=== PATIENT | female | born 1950 | race Caucasian/White ===

== ENCOUNTER 2018-04-11 15:34 | Emergency (ER) | payer MEDICARE, OTHER ==
--- NOTE | 2018-04-11 16:47 | ED Physician Documentation ---
General Adult - HISTORIAN Historian: patient - HPI Stated Complaint: Syncopal Event Chief Complaint: General Adult Further Comments: yes (67 year old female patient present with complaints of dizziness; reports near syncope yesterday, fell due to dizziness. Patient was seen at PCP office Saturday and started on levaquin, compazine and meclinizine for dizziness. Patient reports fatigue and malaise.) - ROS CONST: no problems EYES/ENT: none CVS/RESP: cough GI/: none MS/SKIN/LYMPH: none NEURO/PSYCH: dizziness - PAST HX Past History: other (arthritis, GERD) Surgeries/Procedures: cholecystectomy, other (appendectomy) Allergies/Adverse Reactions: Allergies Allergy/AdvReac Type Severity Reaction Status Date / Time Penicillins Allergy Verified 04/11/18 16:01 Sulfa (Sulfonamide Allergy Verified 04/11/18 16:01 Antibiotics) Home Medications: Ambulatory Orders Medication Instructions Recorded Alprazolam 0.5 mg PO 05/25/15 Meloxicam [Mobic] 05/25/15 Omeprazole 40 mg PO QDAY 05/25/15 Loratadine [Allergy Relief] 04/11/18 - SOCIAL HX Smoking History: non-smoker - FAMILY HX Family History: No - VITAL SIGNS Vital Signs: Vital Signs Temp Pulse Resp BP Pulse Ox 122/73 94 05/25/15 11:07 04/11/18 15:35 - REVIEWED ASSESSMENTS Nursing Assessment Reviewed: Yes Vitals Reviewed: Yes Progress - Progress Progress: Updated patient on lab, CT and xray findings. Positive for Influenza B Toradol, tylenol and NS given - EKG/XRAY/CT EKG: rhythm (Sr, no acute changes, Rate 64) ED Results Lab/Radiology - Orders Orders: ED Orders Category Date Time Status Continuous EKG monitoring Q30M Care 04/11/18 15:58 Active Continuous Pulse Oximetry Q30M Care 04/11/18 15:[address] IV Lock 1T Care 04/11/18 15:58 Active CHEST 2VIEW [RAD] Stat Exams 04/11/18 15:[address] BRAIN W/O CONTRAST Stat Exams 04/11/18 Ordered CBC/PLATELET/DIFF Stat Lab 04/11/18 15:58 Ordered CMP Stat Lab 04/11/18 15:58 Ordered INFLUENZA A&B Stat Lab 04/11/18 15:58 Uncollected TROPONIN I (cTnI) Stat Lab 04/11/18 15:58 Ordered UA W/MICRO IF INDICATED Stat Lab 04/11/18 15:58 Ordered Oxygen Daily Oxygen 04/11/18 16:00 Ordered EKG WITH COMPARISON Stat Ther 04/11/18 15:58 Ordered General Adult Physical Exam - PHYSICAL EXAM GENERAL APPEARANCE: mild distress EENT: eye inspection normal, pharynx normal, no signs of dehydration, JOYCE, no nystagmus, TM's nml, other (pharynx with mild erythema) RESPIRATORY: no resp distress, chest non-tender, breath sounds normal CVS: reg rate & rhythm, heart sounds normal, equal pulses, no murmur, no gallop, PMI nml, no JVD, no friction rub, 24 ABDOMEN: soft, no organomegaly, normal bowel sounds, no abdominal bruit, no distension SKIN: normal color, warm/dry, NR, INT, PAL, DR EXTREMITIES: non-tender, normal range of motion, no evidence of injury, no edema, J, 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 Stay away from others while you have a cold or flu. Take simple painkillers Such as Tylenol or ibuprofen, to help relieve head aches, muscles aches and pains and fever. Keep hydrated (drink plenty of fluids) This will help keep your throat moist and replace fluid lost due to a fever and sweating. Plenty of water is best. Avoid caffeine and alcohol as they will make you more dehydrated. Eat soft food If you have a sore throat soft foods are easier to swallow. Foods such as chicken soup may help a sore throat and reduce mucous. supervisor sewing department an over the counter decongestant such as pseudoped, dayquil and Nyquil at your pharmacy. You may want to try Vicks rub on your chest and/or feet. (Caution: Dayquil and Nyquil contain 325mg of Tylenol/acetaminophen per tablespoon) Cough drops as needed for cough and sore throat. Increase your fluid intake juices, hot tea, non-caffeinated beverages Vitamin C may be helpful in decreasing the length of your cold. Use a humidifier in the room where you sleep. You can also sit in a steam filled bathroom 1-2 times a day. Tylenol every 4 hours 650mg -1000mg (do not exceed 4000mg in 24 hours) as needed for fever, pain and body aches. Alternate with Ibuprofen Ibuprofen 600-800mg every 6 hours as needed for fever, pain and body aches. See your primary care doctor if your symptoms become worse or do not improve in the next 3-4 days. Condition: Stable Disposition: 01 HOME, SELF-CARE Decision to Admit: NO Decision Time: 18:01
[2018-04-11 17:20] LABS: MEAN CORPUSCULAR HEMOGLOBIN 30.4 pg (28.0-34.0)
[2018-04-11 17:21] LABS: BASOPHILS % 0.8 (0.0-1.5); EOSINOPHILS % 4.1 % (0.0-6.8); MONOCYTES % 12.4 % (0.0-11.0); NEUTROPHILS # 5.8 # k/uL (1.4-7.7)
[2018-04-11 17:28] LABS: APPEARANCE,URINE CLEAR (CLEAR); COLOR,URINE YELLOW (YELLOW); OCCULT BLOOD,URINE 1+ (NEGATIVE)
[2018-04-11] MEDS ORDERED: 0.9 % SODIUM CHLORIDE 1,000 ML IV ONE ×2 (17:28→18:08)
[2018-04-11] MEDS ORDERED: KETOROLAC TROMETHAMINE 30 MG/1ML VIAL IVP ONE (17:28)
[2018-04-11] MEDS ORDERED: ACETAMINOPHEN 500 MG TABLET PO ONE (17:28)
[2018-04-11 17:29] LABS: UROBILINOGEN URINE 0.2 Eu (0.2-1.0)
[2018-04-11 19:32] VITALS: BP 144/57
--- NOTE | 2018-04-12 04:12 | Diagnostic Imaging Report ---
NIKOLAI LANGSTON (ROTATIONAL MOULDING OPERATOR) - ER [facility] [address] [facility] [address] [place], [place]. [address] Report Submission Date: Apr 11, 2018 5:42:44 PM ARBORICULTURE INSTRUCTOR Patient Study Name: ADELSO JIMENEZ Date: Apr 11, 2018 5:14:08 PM ARBORICULTURE INSTRUCTOR Modality Type: DX Gender: F Description: CHEST 2VIEW : 52 Institution: [facility] Physician: NIKOLAI LANGSTON (ROTATIONAL MOULDING OPERATOR) - ER 2 views of the chest History: DIZZINESS, COUGH AND NEAR SYNCOPA EPISODE TODAY PATIENT STATES DX OF EAR INFECTION X 2 DAYS AGO Comparison: None available Cardiac size upper limits of normal. Basilar dependent chronic interstitial lung changes are seen with scarring and atelectasis. Hyperinflation. Peripherally calcified small rounded 2 mm lesion is seen in the peripheral right upper lobe. Cervical spine fusion hardware is seen in the lower neck, thoracic spine degenerative changes Impression: 1. Emphysema. Basilar predominant chronic interstitial lung changes with scarring or atelectasis. Superimposed patchy infiltrates cannot be excluded. No pleural effusion. Electronically signed on Apr 11, 2018 5:42:44 PM ARBORICULTURE INSTRUCTOR by: Susu MULLER
--- NOTE | 2018-04-12 04:16 | Diagnostic Imaging Report ---
NIKOLAI LANGSTON (ROMAINE) - ER [facility] [address] [facility] [address] [place], [place]. [address] Report Submission Date: Apr 11, 2018 5:37:00 PM BATTERY TESTER AND REPAIRER Patient Study Name: ADELSO JIMENEZ Date: Apr 11, 2018 5:09:06 PM BATTERY TESTER AND REPAIRER Modality Type: CT\SR Gender: F Description: CT BRAIN W/O CONTRAST : 52 Institution: [facility] Physician: NIKOLAI LANGSTON) - ER CT brain noncontrast CLINICAL HISTORY: DIZZINESS, COUGH AND NEAR SYNCOPA EPISODE TODAY PATIENT STATES DX OF EAR INFECTION X 2 DAYS AGO (Hx) / ITS.REASON dizziness, near syncopal episode Note time : 04/11/2018 6:18:55 PM User : Alecia Roman DIZZINESS, COUGH AND NEAR SYNCOPA EPISODE TODAY PATIENT STATES DX OF EAR INFECTION X 2 DAYS AGO (DICOM Hx) TECHNIQUE: 5 mm contiguous axial images of the brain, noncontrast. FINDINGS: There is no evidence of intracranial mass effect, hemorrhage, or acute hydrocephalus. The lateral ventricles are symmetrical and the 4th ventricle is midline without shift. No acute brain parenchymal changes or extra-axial fluid collections are identified. The posterior fossa contents are within normal limits. There is white matter disease compatible with chronic small vessel ischemic disease. The calvarium is intact. The visualized sinuses and mastoid air cells are clear. IMPRESSION: No acute intracranial process. Electronically signed on Apr 11, 2018 5:37:00 PM BATTERY TESTER AND REPAIRER by: Farzad MULLER
== END 2018-04-11 19:32 | disposition home or self-care (01) ==
LOC: ED 15:34
DX: J11.1 Influenza due to unidentified influenza virus with other respiratory manifestations (principal); R55 Syncope and collapse; R42 Dizziness and giddiness
CPT/HCPCS: 36415; 70450; 71046; 80053; 81002; 82310; 82330; 84484; 85025; 87400; 93005; 96374; 99285; J1885; J7030; S1016